=== PATIENT | male | born 1955 | race Caucasian/White ===

== ENCOUNTER 2021-05-24 23:18 | Inpatient (IN) | payer MEDICARE, OTHER ==
[~2021-05-24] VITALS: Ht 177.8 cm; Wt 68.0 kg
[2021-05-25] MEDS ORDERED: VITAMIN B-121000 MCG PO (00:42)
[2021-05-25] MEDS ORDERED: DILTIAZEM 24HR180 M1 PO (00:47)
[2021-05-25] MEDS ORDERED: HYDROXYZINE HCL25 MG PO (00:48)
[2021-05-25] MEDS ORDERED: INSULIN AS100 UNIT/3 SQ (00:49)
[2021-05-25] MEDS ORDERED: IPRAT-ALBUT 0.5-3 ML INH (00:52)
[2021-05-25] MEDS ORDERED: COMBIVENT RESPIM4 GM INH (00:53)
[2021-05-25] MEDS ORDERED: MIRALAX17 GM PO (00:54)
[2021-05-25] MEDS ORDERED: SENNA S TABLET1 EACH PO (00:55)
[2021-05-25] MEDS ORDERED: ANORO ELLIPTA1 EACH INH (00:56)
[2021-05-25] MEDS ORDERED: JANUVIA 100 MG100 MG PO (00:56)
[2021-05-25] MEDS ORDERED: BETAPACE80 MG PO (00:58)
[2021-05-25] MEDS ORDERED: LEVEMIR100 UNIT/1 SQ (01:08)
[2021-05-25 06:44] LABS: HEMOGLOBIN 8.8 gm/dl (14.0-17.5); RED BLOOD COUNT 2.95 M/UL (4.20-5.50); WHITE BLOOD COUNT 10.5 K/UL (4.5-11.0)
[2021-05-25 07:06] LABS: BUN/CREATININE RATIO 25 (0-10)
[2021-05-26 07:56] LABS: HEMOGLOBIN 11.9 gm/dl (14.0-17.5); RED BLOOD COUNT 4.04 M/UL (4.20-5.50); WHITE BLOOD COUNT 11.8 K/UL (4.5-11.0)
[2021-05-26 10:26] LABS: BUN/CREATININE RATIO 37 (0-10)
[2021-05-26 10:26] LABS: BUN/CREATININE RATIO 36 (0-10)
[2021-05-26 10:46] LABS: HEMOGLOBIN 12.8 gm/dl (14.0-17.5); RED BLOOD COUNT 4.27 M/UL (4.20-5.50)
[2021-05-27 06:24] LABS: HEMOGLOBIN 11.5 gm/dl (14.0-17.5); RED BLOOD COUNT 3.95 M/UL (4.20-5.50); WHITE BLOOD COUNT 11.3 K/UL (4.5-11.0)
[2021-05-27 07:12] LABS: BUN/CREATININE RATIO 32 (0-10)
[2021-05-28 07:06] LABS: HEMOGLOBIN 10.1 gm/dl (14.0-17.5)
[2021-05-28 07:07] LABS: RED BLOOD COUNT 3.44 M/UL (4.20-5.50); WHITE BLOOD COUNT 8.2 K/UL (4.5-11.0)
[2021-05-28 08:14] LABS: BUN/CREATININE RATIO 30 (0-10)
[2021-05-29 07:22] LABS: HEMOGLOBIN 9.7 gm/dl (14.0-17.5); RED BLOOD COUNT 3.3 M/UL (4.20-5.50)
[2021-05-29 07:50] LABS: BUN/CREATININE RATIO 23 (0-10)
[2021-05-30 07:58] LABS: HEMOGLOBIN 8.4 gm/dl (14.0-17.5); WHITE BLOOD COUNT 8.4 K/UL (4.5-11.0)
[2021-05-30 08:02] LABS: RED BLOOD COUNT 2.94 M/UL (4.20-5.50)
[2021-05-30 08:29] LABS: BUN/CREATININE RATIO 34 (0-10)
[2021-05-31 06:57] LABS: HEMOGLOBIN 8.7 gm/dl (14.0-17.5); RED BLOOD COUNT 2.95 M/UL (4.20-5.50)
[2021-05-31 07:01] LABS: WHITE BLOOD COUNT 6.1 K/UL (4.5-11.0)
[2021-05-31 07:36] LABS: BUN/CREATININE RATIO 36 (0-10)
[2021-06-01 06:41] LABS: HEMOGLOBIN 8.7 gm/dl (14.0-17.5); RED BLOOD COUNT 2.99 M/UL (4.20-5.50)
[2021-06-01] MEDS ORDERED: NICOTINE PATCH1 EAC1 TOP (08:43)
[2021-06-01] MEDS ORDERED: HUMALOG 10100 UNITS/ SC (08:43)
[2021-06-01] MEDS ORDERED: OXYCODONE HCL10 MG PO (08:43)
[2021-06-01] MEDS ORDERED: ENOXAPARIN40 MG/0.4 SC (08:45)
== END 2021-06-01 14:45 | DRG 481 ==
LOC: M/S 23:18
PROVIDERS: Anesthesiology; Internal Medicine Infectious Disease; Orthopaedic Surgery; ADMIT Internal Medicine
PROC: 30233N1 Transfusion of Nonautologous Red Blood Cells into Peripheral Vein, Percutaneous Approach (ICD-10-PCS; 2021-05-25)
PROC: 0QS606Z Reposition Right Upper Femur with Intramedullary Internal Fixation Device, Open Approach (ICD-10-PCS; principal; 2021-05-26 15:45)
DX: S72.141A Displaced intertrochanteric fracture of right femur, initial encounter for closed fracture (principal); J96.12 Chronic respiratory failure with hypercapnia; J96.11 Chronic respiratory failure with hypoxia; D62 Acute posthemorrhagic anemia; R64 Cachexia; Z20.822 Contact with and (suspected) exposure to COVID-19; J44.9 Chronic obstructive pulmonary disease, unspecified; E11.9 Type 2 diabetes mellitus without complications; R53.81 Other malaise; C67.9 Malignant neoplasm of bladder, unspecified; I34.0 Nonrheumatic mitral (valve) insufficiency; I49.9 Cardiac arrhythmia, unspecified; E87.6 Hypokalemia; W18.30XA Fall on same level, unspecified, initial encounter; Y92.009 Unspecified place in unspecified non-institutional (private) residence as the place of occurrence of the external cause; Z79.4 Long term (current) use of insulin; Z99.81 Dependence on supplemental oxygen; Z87.891 Personal history of nicotine dependence; Z88.0 Allergy status to penicillin
CPT/HCPCS: 36415; 36600; 71045; 73502; 73552; 76000; 80048; 80053; 82550; 82553; 82803; 82962; 83036; 83880; 84132; 84484; 85025; 85027; 85610; 86850; 86900; 86901; 86920; 93005; 94640; 94660; 94664; 94760; 97110; 97110-GP-CQ; 97162; 97167; 97530-GP-CQ; C1713; J0171; J0690; J1100; J1650; J2001; J2704; J2795; J3480; J7030; J7120; P9016; U0002

== ENCOUNTER 2021-08-04 12:57 | Inpatient (IN) | payer MEDICARE, OTHER ==
[~2021-08-04] VITALS: Ht 172.7 cm; Wt 49.9 kg
[~2021-08-04 12:57] MED LIST: ANORO ELLIPTA1 EACH INH; BETAPACE80 MG PO; COMBIVENT RESPIM4 GM INH; DILTIAZEM 24HR240 M1 PO; ENOXAPARIN40 MG/0.4 SC; HUMALOG 10100 UNITS/ SC; HYDROXYZINE PAM25 MG PO; INSULIN AS100 UNIT/3 SQ; JANUVIA 100 MG100 MG PO; LEVEMIR100 UNIT/1 SQ; MIRALAX17 GM PO; NICOTINE PATCH1 EAC1 TOP; OXYCODONE HCL10 MG PO; SENNA S TABLET1 EACH PO; VITAMIN B-121000 MCG PO
[2021-08-04 13:25] LABS: HEMOGLOBIN 11.2 gm/dl (14.0-17.5); RED BLOOD COUNT 3.73 M/UL (4.20-5.50); WHITE BLOOD COUNT 9.4 K/UL (4.5-11.0)
[2021-08-04 14:01] LABS: BUN/CREATININE RATIO 45 (0-10)
[2021-08-04] MEDS ORDERED: DOXYCYCLINE HY100 M2 PO (18:07)
[2021-08-04] MEDS ORDERED: FUROSEMIDE20 MG PO (18:07)
[2021-08-04] MEDS ORDERED: SERTRALINE HCL50 MG PO (18:08)
[2021-08-04] MEDS ORDERED: FLONASE 0.05% N16 GM (18:08)
[2021-08-04] MEDS ORDERED: SPIRONOLACTONE25 MG PO (18:08)
[2021-08-05] MEDS ORDERED: IPRAT-ALBUT 0.5-3 ML NEB (00:52)
[2021-08-05] MEDS ORDERED: FERROUS SULFAT325 MG PO (01:57)
[2021-08-05] MEDS ORDERED: NICODERM CQ1 EAC2 TD (01:59)
[2021-08-05] MEDS ORDERED: MULTI-VITAMIN1 EACH PO (02:00)
[2021-08-05] MEDS ORDERED: SENNA-DOCUSATE1 EACH PO (02:01)
[2021-08-05] MEDS ORDERED: SALONPAS LIDOCA85 GM EXT (02:04)
[2021-08-05] MEDS ORDERED: ACETAMINOPHEN500 MG PO (02:07)
[2021-08-05] MEDS ORDERED: POLYETHYLENE GL17 GM PO (02:08)
[2021-08-05 05:44] LABS: HEMOGLOBIN 9.6 gm/dl (14.0-17.5); WHITE BLOOD COUNT 7.5 K/UL (4.5-11.0)
[2021-08-05 05:52] LABS: RED BLOOD COUNT 3.28 M/UL (4.20-5.50)
[2021-08-05 05:58] LABS: BUN/CREATININE RATIO 40 (0-10)
[2021-08-06 08:02] LABS: HEMOGLOBIN 9.7 gm/dl (14.0-17.5); RED BLOOD COUNT 3.28 M/UL (4.20-5.50)
[2021-08-06 08:06] LABS: WHITE BLOOD COUNT 14.2 K/UL (4.5-11.0)
[2021-08-06 08:26] LABS: BUN/CREATININE RATIO 37 (0-10)
[2021-08-07 08:04] LABS: HEMOGLOBIN 9.8 gm/dl (14.0-17.5); RED BLOOD COUNT 3.26 M/UL (4.20-5.50)
[2021-08-07 08:05] LABS: WHITE BLOOD COUNT 10.4 K/UL (4.5-11.0)
[2021-08-07 09:09] LABS: BUN/CREATININE RATIO 40 (0-10)
--- NOTE | 2021-08-07 10:00 | NUR ---
0908: GLUCOSE NOTED AT 13 CONFIRMED ALSO BY LAB X SECOND RUN OF SPECIMEN. 1 AMP OF D50 GIVEN IN RIGHT HAND, IV LEAKING AT SITE, HOWEVER, CONTINUED TO TREAT PATIENT UNTIL ADDITIONAL IV ACCESS OBTAINED. CONTINUED WITH 2ND AMP OF D50 D/T LEAKING IV, PATIENT RECEIVED LESS THAN 1/3 OF 2ND AMP OF D50, D/T IV NOT WORKING AT ALL, STILL ATTEMPTING TO OBTAIN IV ACCESS, PATIENT POORLY RESPONSIVE, RN GAVE D50 GEL X 1. 22 GUAGE IV STARTED IN LEFT HAND. 0915: GLUCOSE NOTED AT 301, PATIENT AWAKE AND TALKING NOW, ENCOURAGING PATIENT TO EAT BREAKFAST. 0930: GLUCOSE NOTED AT 181, CONTINUES TO EAT BREAKFAST. 1000: GLUCISE NOTED AT 165, CONTINUES TO EAT BREAKFAST.
[2021-08-08 08:03] LABS: HEMOGLOBIN 9.1 gm/dl (14.0-17.5); RED BLOOD COUNT 3.02 M/UL (4.20-5.50)
[2021-08-08 08:08] LABS: WHITE BLOOD COUNT 7.3 K/UL (4.5-11.0)
[2021-08-08 08:43] LABS: BUN/CREATININE RATIO 38 (0-10)
--- NOTE | 2021-08-08 11:13 | NUR ---
PATIENT HAD CRITICAL LAB OF BLOOD GLUCOSE OF 4. THE NURSE WAS IN OTHER CRITICAL PATIENTS ROOM, NURSES PHONE WAS NOT WORKING AND PRIMARY NURSE COULD NOT BE REACHED BY LAB. ANOTHER NURSE ON FLOOR WAS CONTACTED BY CODE INSPECTOR AND RUSHED TO GIVE PATIENT 2 AMPS OF D50. A PROVIDER WAS ON THE FLOOR AND CAME TO PATIENTS ROOM TO ASSIST. NURSESE ALREADY ON FLOOR FOR OTHER CRITICAL PATIENT ALSO CAME TO ROOM TO ASSIST. PRIMARY NURSE ALERTED BY THIS TIME AND CAME TO PATIENT'S ROOM. PATIENT WAS GIVEN 20 OF LASIX. 3 AMPS OF D 50, 1/2 TUBE OF GLUCOSE POAT 8:57. ABG'S ORDERED AFTER PATIENT STILL UNRESPONSIVE. CO2 WAS FOUND TO BE 80. 15 MINUTES POST D 50 PATIENT'S BLOOD GLUCOSE WAS FOUND TO BE 296. PATIENT PLACED ON BI-PAP. PROVIDER ON FLOOR CONTACTED HOSPITALIST FOR PATIENT AND INFORMED THEM OF THE SITUATION AND PATIENT CONDITION. HOSPITALIST ORDERED PATIENT TO BE MOVED TO ICU. PATIENT MONITORED BY PRIMARY NURSE UNTIL REPORT TO NEW ROOM CALLED AND PATIENT MOVED TO NEW FLOOR.
[2021-08-09 16:37] LABS: HEMOGLOBIN 10.1 gm/dl (14.0-17.5); RED BLOOD COUNT 3.39 M/UL (4.20-5.50); WHITE BLOOD COUNT 9.4 K/UL (4.5-11.0)
[2021-08-09 17:03] LABS: BUN/CREATININE RATIO 35 (0-10)
[2021-08-09 22:00] LABS: HEMOGLOBIN 9.3 gm/dl (14.0-17.5); RED BLOOD COUNT 3.13 M/UL (4.20-5.50); WHITE BLOOD COUNT 9.4 K/UL (4.5-11.0)
[2021-08-10 02:19] LABS: HEMOGLOBIN 9.3 gm/dl (14.0-17.5); RED BLOOD COUNT 3.08 M/UL (4.20-5.50); WHITE BLOOD COUNT 9.2 K/UL (4.5-11.0)
[2021-08-10 02:37] LABS: BUN/CREATININE RATIO 42 (0-10)
--- NOTE | 2021-08-12 14:04 | NUR ---
PT AT 1253. WAS WITNESSED WITH Danya HOLLEY. family at bed side.
--- NOTE | 2021-08-12 20:19 | NUR ---
HOME RECIEVED PATIENT.
== END 2021-08-12 20:22 | disposition expired | DRG 193 ==
LOC: ER1 12:57 → MED SURG 4 17:14 → CCU 17:14 → CDU 17:14 → MED SURG 4 20:16 → CCU 08-08 09:38 → PROG CARE 08-10 18:11
PROVIDERS: Emergency Medicine; Family Medicine; Internal Medicine; ADMIT Internal Medicine
PROC: 5A09457 Assistance with Respiratory Ventilation, 24-96 Consecutive Hours, Continuous Positive Airway Pressure (ICD-10-PCS; principal; 2021-08-04)
PROC: B24BZZZ Ultrasonography of Heart with Aorta (ICD-10-PCS; 2021-08-06)
PROC: 5A09457 Assistance with Respiratory Ventilation, 24-96 Consecutive Hours, Continuous Positive Airway Pressure (ICD-10-PCS; 2021-08-08)
DX: J18.9 Pneumonia, unspecified organism (principal); J96.21 Acute and chronic respiratory failure with hypoxia; Z20.822 Contact with and (suspected) exposure to COVID-19; G93.41 Metabolic encephalopathy; J96.22 Acute and chronic respiratory failure with hypercapnia; E43 Unspecified severe protein-calorie malnutrition; J44.1 Chronic obstructive pulmonary disease with (acute) exacerbation; J44.0 Chronic obstructive pulmonary disease with (acute) lower respiratory infection; Z68.1 Body mass index [BMI] 19.9 or less, adult; S37.30XA Unspecified injury of urethra, initial encounter; I50.32 Chronic diastolic (congestive) heart failure; N30.00 Acute cystitis without hematuria; E86.0 Dehydration; D64.9 Anemia, unspecified; E11.9 Type 2 diabetes mellitus without complications; Z66 Do not resuscitate; I48.91 Unspecified atrial fibrillation; L89.156 Pressure-induced deep tissue damage of sacral region; L89.106 Pressure-induced deep tissue damage of unspecified part of back; L89.626 Pressure-induced deep tissue damage of left heel; I11.0 Hypertensive heart disease with heart failure; E87.6 Hypokalemia; L89.616 Pressure-induced deep tissue damage of right heel; Z85.51 Personal history of malignant neoplasm of bladder; S72.141S Displaced intertrochanteric fracture of right femur, sequela; Z87.891 Personal history of nicotine dependence; Z79.4 Long term (current) use of insulin; Z51.5 Encounter for palliative care
CPT/HCPCS: ECHO; 0240U; 36415; 36600; 70450; 71045; 74018; 80048; 80053; 80307; 81001; 82140; 82550; 82553; 82803; 82962; 83605; 83690; 83735; 83880; 84132; 84439; 84443; 84484; 85025; 85610; 87086; 93005; 93306; 94640; 94660; 94664; 94760; 96374; 96375; 99285; A6212; C1751; G0480; J0696; J1650; J1885; J1956; J2060; J2270; J2920; J2930; J3475; J3480; J7040